=== PATIENT | male | born 1960 | race Caucasian/White ===

== ENCOUNTER 2017-04-14 12:06 | Day surgery (SDC) | payer OTHER ==
[2017-04-14] MEDS ORDERED: DEPO METHYLPREDNISOLONE 40 MG/ML SDV ONE ×2 (12:45→16:24)
[2017-04-14] MEDS ORDERED: BUPIVACAINE 0.25% 30 ML SDV ONE (12:45)
[2017-04-14] MEDS ORDERED: THROMBIN (BOVINE) 5,000 UNIT VIAL TP ONE (12:45)
[2017-04-14] MEDS ORDERED: BACITRACIN 50,000 UNITS/10 ML SYR IRR ONE (12:46)
[2017-04-14] MEDS ORDERED: ceFAZolin 2 GM/SWFI 2 GM/20 ML SYR IVP ONE (12:52)
[2017-04-14] MEDS ORDERED: ACETAMINOPHEN 500 MG TAB PO ONE (12:52)
[2017-04-14] MEDS ORDERED: GABAPENTIN 300 MG CAP PO ONE (12:52)
[2017-04-14] MEDS ORDERED: LIDOCAINE 1% 2 ML INJ ID PRN (12:56)
[2017-04-14] MEDS ORDERED: LR 1,000 ML IV ONE (12:56)
--- NOTE | 2017-04-14 13:00 | PDHPUP ---
History & Physical Update H&P update statement: This history and physical update is based on an assessment of the patient which was completed after admission or registration (within 24 hours), but prior to the surgery/procedure. H&P update: H&P reviewed & patient examined, no change in patient's condition since H&P completed
[2017-04-14 13:16] VITALS: PULSE 58
[2017-04-14] MEDS ORDERED: fentaNYL 100 MCG/2 ML INJ ONE ×2 (13:22→14:30)
[2017-04-14] MEDS: fentaNYL 100 MCG/2 ML INJ IVP PRN ×2 (13:30→14:53)
--- NOTE | 2017-04-14 13:48 | PDANEPAE ---
ANE History of Present Illness here for microdisc ANE Past Medical History - Cardiovascular History Hx Hypertension: Yes Hx Arrhythmias: Yes Hx Chest Pain: No Hx Coronary Artery / Peripheral Vascular Disease: No Hx CHF / Valvular Disease: No Hx Palpitations: No Cardiovascular History Comment: sss or sinus arrest - Pulmonary History Hx COPD: No Hx Asthma/Reactive Airway Disease: No Hx Recent Upper Respiratory Infection: No Hx Oxygen in Use at Home: No Hx Sleep Apnea: No Sleep Apnea Screening Result - Last Documented: Positive - Neurologic History Hx Cerebrovascular Accident: No Hx Seizures: No Hx Dementia: No - Endocrine History Hx Diabetes: No - Renal History Hx Renal Disorders: Yes Renal History Comment: bump in creatinine 1 yr ago - Liver History Hx Hepatic Disorders: No - Neurological & Psychiatric Hx Hx Neurological and Psychiatric Disorders: Yes Neurological / Psychiatric History Comment: depression - Cancer History Hx Cancer: No - Congenital Disorder History Hx Congenital Disorders: No - GI History Hx Gastrointestinal Disorders: Yes Gastrointestinal History Comment: gerd - Other Health History Other Health History: none - Chronic Pain History Chronic Pain: No - Surgical History Prior Surgeries: microdiscectomy 2014. pacemaker 11/26 ANE Review of Systems Review of Systems: - Exercise capacity METS (RN): 4 METS - Pacemaker Pacemaker Type: Permanent Pacer/Defib Pacemaker [employer]: OTOY Pacemaker Model: L331 Date Pacemaker Last Checked: 03/25/17 ANE Patient History - Allergies Allergies/Adverse Reactions: prochlorperazine [From Compazine] Allergy (Intermediate, Verified 04/13/17 13:11 ) Other-Enter Comments - Home Medications Home Medications: Lexapro 04/13/17 [Last Taken 04/13/17 22:00] Losartan Potassium 04/13/17 [Last Taken 04/13/17 22:00] Metoprolol Tartrate 04/13/17 [Last Taken 04/13/17 22:00] Omeprazole 04/13/17 [Last Taken 04/13/17 20:00] Tramadol HCl 04/13/17 [Last Taken 04/13/17 22:00] Tylenol 04/13/17 [Last Taken 04/14/17 10:00] - NPO status NPO Since - Liquids (Date): 04/13/17 NPO Since - Liquids (Time): 20:00 NPO Since - Solids (Date): 04/13/17 NPO Since - Solids (Time): 22:00 - Smoking Hx Smoking Status: Never smoked - Family Anes Hx Family Hx Anesthesia Complications: none ANE Labs/Vital Signs - Vital Signs Blood Pressure: 124/87 Heart Rate: 58 Respiratory Rate: 16 O2 Sat (%): 94 Height: 177.8 cm Weight: 79.379 kg
[2017-04-14] MEDS ORDERED: MIDAZOLAM 2 MG/2 ML VIAL IVP ONE (13:49)
[2017-04-14] MEDS ORDERED: fentaNYL 100 MCG/2 ML INJ IVP ONE (14:45)
[2017-04-14] MEDS ORDERED: PROPOFOL/EMULSION 500 MG/50 ML BOTTLE IV ONE ×2 (14:51→15:09)
[2017-04-14] MEDS ORDERED: OXYCODONE/APAP 5/325 TAB PO PRN (15:41)
[2017-04-14] MEDS ORDERED: NS 500 ML IV PRN (15:41)
[2017-04-14] MEDS ORDERED: HYDROCODONE/APAP 5/325 TAB PO PRN (15:41)
[2017-04-14] MEDS ORDERED: HYDROmorphONE/DILAUDID 1 MG/ML INJ IVP PRN (15:41)
[2017-04-14] MEDS ORDERED: fentaNYL 100 MCG/2 ML INJ IVP PRN (15:41)
[2017-04-14] MEDS ORDERED: NALOXONE HCL 0.4 MG/ML INJ IVP PRN (15:41)
[2017-04-14] MEDS ORDERED: DIAZEPAM 10 MG/2 ML SYR IVP PRN (15:41)
[2017-04-14] MEDS ORDERED: DEXAMETHASONE 4 MG/ML VIAL IVP PRN (15:41)
[2017-04-14] MEDS ORDERED: SUGAMMADEX SODIUM 200 MG/2 ML VIAL IVP ONE (16:35)
--- NOTE | 2017-04-14 16:56 | SOAPPROG ---
SOAP Progress Note Assessment/Plan: Post Op Visit: S: Awake and alert, NAD. Pt with expected lower back pain O: AFVSS/PERRLA/EOMI no droop CN 2-12 grossly intact +lt touch 5/5 BUE/BLE = CDI A/P: 56 yo male that is s/p left sided L5/S1 SHALINI -orders in place -dc home once meets criteria -call with any questions or concerns -pt understands and agrees -pt seen by Dr Miller as well 04/14/17 16:53 Objective: Vital Signs Temp Pulse Resp BP Pulse Ox 36.6 C 58 L 16 124/87 H 94 04/14/17 13:08 04/14/17 13:48 04/14/17 13:48 04/14/17 13:48 04/14/17 13:48 ICD10 Worksheet Patient Problems: Problems Problem Status Onset Herniated lumbar intervertebral disc Acute Left leg weakness Acute Lumbar radicular pain Acute Lumbar stenosis Acute - ICD10 Problem Qualifiers (1) Lumbar stenosis (2) Lumbar radicular pain (3) Herniated lumbar intervertebral disc (4) Left leg weakness
--- NOTE | 2017-04-14 16:59 | POSTANESTH ---
Post Anesthetic Evaluation Cardiovascular Status: Normal, Stable Respiratory Status: Normal, Stable Level of Consciousness/Mental Status: Can Participate in Eval Pain Control: Adequate, Prn Tx Ordered Nausea/Vomiting Control: Adequate, Prn Tx Ordered Complications Possibly Related to Anesthesia: None Noted
[2017-04-14 17:19] VITALS: RESP 17; TEMP 97.9
[2017-04-14 17:44] VITALS: BP 128/88; O2SAT 96
--- NOTE | 2017-04-15 05:40 | GOP ---
[f rep st] OPERATIVE REPORT DATE OF OPERATION: 04/14/2017 SURGEON: Hien Miller MD HEALTHCARE ECONOMICS MANAGER: Himanshu Stewart PA-C. PREOPERATIVE DIAGNOSIS: Herniated nucleus polyposis, left L5-S1, prior right L4-5 microdiskectomy. POSTOPERATIVE DIAGNOSIS: Herniated nucleus polyposis, left L5-S1, prior right L4-5 microdiskectomy. PROCEDURE PERFORMED: Left L5-S1 hemilaminotomy with a microdiskectomy ([id number]), microscope. 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 He also had a prior history of a cervical fusion that has been successful in the past, and he developed acute and severe left S1 radicular pain. He was unres ponsive to conservative measures and interfering with his ability to work. MRI was impressive. Ther e is a large extruded disk fragment pushing right up into the S1 root and surgery was offered to the patient. The risk of recurrent disk herniation, nerve injury, spinal fluid leak was discussed. The risks were low. He knew there was risk of infection. This risk too was low. He wanted to proceed. DESCRIPTION OF PROCEDURE: Patient was taken to the operating room, placed in supine position. Gener al anesthesia was begun. He was flipped prone onto the Dawson frame. Care was taken to pad all poin ts of contact. His back was sterilely prepped and draped in usual fashion. A localizing x-ray was t aken. We made a midline incision. It was 15 mm in length. The subcutaneous tissue was dissected us ing Bovie cautery down through the fascia and a subperiosteal dissection was made down the lamina of L5-S1 on the left-hand side. A self-retaining retractor was placed. A localizing x-ray was taken. Operating microscope was introduced. We drilled a left L5-S1 hemilaminotomy. We opened ligamentum f lavum, exposed the lateral thecal sac, decompressed the left S1 nerve root down adjacent to the S1 pe dicle and underneath the nerve root was a large, very sharp focal mass pushing up out of the disk spa ce into the nerve itself. It was covered with epidural veins and scar tissue. We mobilized the nerv e, swept the nerve medially and then took a black hook and punctured into this mass and delivered a l arge amount of free fragment disk material right underneath the nerve. We removed all this material and the nerve relaxed nicely. We probed the central portion of the 5- disk with a ball-tip dissector . There was some broad bulging of the L5-S1 disk, but no additional free fragments present. We did not enter the L5-S1 disk. We simply stayed out of the disk itself. We removed all the free disk fra gment material from the lateral aspect of the spinal canal and irrigated with antibiotic saline solut ion. We then chose a small piece of Gelfoam, put a little bit of Medrol on the Gel-Foam and placed i t over the left S1 nerve. We then closed the incision in multiple layers using Vicryl sutures. A ru nning PDS was placed in the skin itself. The patient was reversed from anesthesia, extubated, and tr ansferred to recovery room in stable condition. There were no complications. COMPLICATIONS: None. /[id number]/MODL
== END 2017-04-14 18:14 | disposition home or self-care (01) ==
LOC: FSGY 12:06
PROVIDERS: ATTEND Neurological Surgery
PROC: 00CY0ZZ Extirpation of Matter from Lumbar Spinal Cord, Open Approach (ICD-10-PCS; principal; 2017-04-14 15:30)
PROC: 00NY0ZZ Release Lumbar Spinal Cord, Open Approach (ICD-10-PCS; principal; 2017-04-14 15:30)
PROC: BR1 Imaging, Axial Skeleton, Except Skull and Facial Bones, Fluoroscopy (ICD-10-PCS; 2017-04-14 15:30)
DX: M51.27 Other intervertebral disc displacement, lumbosacral region (principal); M48.07 Spinal stenosis, lumbosacral region; M62.81 Muscle weakness (generalized); M54.12 Radiculopathy, cervical region; Z98.1 Arthrodesis status; Z95.0 Presence of cardiac pacemaker
CPT/HCPCS: J0171; J0690; J1030; J2250; J2704; J3010